=== PATIENT | male | born 1945 | race Caucasian/White ===

== ENCOUNTER 2018-09-19 06:15 | Day surgery (SDC) | payer MEDICARE ==
[2018-09-18 12:50] VITALS: BMI 25.7
[~2018-09-19 06:15] MED LIST: BSS (NA/CA/MG/K) BALANCED SALT SOLUTION OPHTH SOLN 15 ML BOTTLE OD ONE; CHONDROITIN SU A/HYALUR SOD 1 KIT IO ONE; EPINEPHrine/PF 1 MG/1 ML (1:1,000) AMPULE SQ ONE; LIDOCAINE HCL 1% PRESERVATIVE FREE - 30ML VIAL IO ONE; POVIDONE-IODINE 5% OPHTHALMIC PREP 30 ML SOLUTION OD ONE; TETRACAINE 0.5% OPHTH SOLN 2 ML BOTTLE OD ONE
[2018-09-19] MEDS ORDERED: PHENYLEPHRINE 2.5% OPHTH SOLN 15 ML BOTTLE ONE (06:49)
[2018-09-19] MEDS ORDERED: CYCLOPENTOLATE HCL 1% OPHTH SOLN 2 ML BOTTLE ONE (06:49)
[2018-09-19] MEDS ORDERED: CIPROFLOXACIN HCL 0.3% OPHTH 2.5ML BOTTLE ONE (06:49)
[2018-09-19] MEDS ORDERED: TROPICAMIDE 1% OPHTH SOLN 15 ML BOTTLE ONE (06:49)
[2018-09-19] MEDS ORDERED: CHONDROITIN SU A/HYALUR SOD 1 KIT ONE (07:09)
[2018-09-19] MEDS ORDERED: PHENYLEPHRINE 2.5% OPHTH SOLN 15 ML BOTTLE OD ONE ×3 (07:10→07:20)
[2018-09-19] MEDS ORDERED: CYCLOPENTOLATE HCL 1% OPHTH SOLN 2 ML BOTTLE OD ONE ×3 (07:10→07:20)
[2018-09-19] MEDS ORDERED: TROPICAMIDE 1% OPHTH SOLN 15 ML BOTTLE OD ONE ×3 (07:10→07:20)
[2018-09-19] MEDS ORDERED: CIPROFLOXACIN 0.3% EYE DROPS 5 ML BOTTLE OD ONE ×2 (07:10→07:20)
[2018-09-19] MEDS ORDERED: CIPROFLOXACIN HCL 0.3% OPHTH 2.5ML BOTTLE OD ONE (07:15)
[2018-09-19] MEDS ORDERED: VANCOMYCIN 500 MG VIAL (RESTRICTED TO ID ONLY) ONE (07:25)
[2018-09-19] MEDS ORDERED: LIDOCAINE HCL/PF 1% SDV 5ML VIAL ONE (07:25)
[2018-09-19] MEDS ORDERED: POVIDONE-IODINE 5% OPHTHALMIC PREP 30 ML SOLUTION ONE (07:26)
[2018-09-19] MEDS ORDERED: TETRACAINE 0.5% OPHTH SOLN 2 ML BOTTLE ONE (07:26)
[2018-09-19] MEDS ORDERED: WATER FOR INJ,STERILE 10 ML ONE ×2 (07:26→07:39)
[2018-09-19] MEDS ORDERED: TRYPAN BLUE 0.5 ML DISP.SYRIN ONE (07:27)
[2018-09-19] MEDS ORDERED: ACETAMINOPHEN 325 MG TABLET (FP) PO PRN (07:44)
[2018-09-19] MEDS ORDERED: KETOROLAC TROMETHAMINE 0.5% EYE DROP 1 DROP DROPS OP SCH (07:45)
[2018-09-19] MEDS ORDERED: OFLOXACIN 0.3% OPHTHALMIC SOLUTION 5 ML BOTTLE OP SCH (07:45)
[2018-09-19] MEDS ORDERED: PHENYLEPHRINE 2.5% OPHTH SOLN 15 ML BOTTLE OP SCH (07:45)
[2018-09-19] MEDS ORDERED: CYCLOPENTOLATE HCL 1% OPHTH SOLN 2 ML BOTTLE OP SCH (07:45)
[2018-09-19] MEDS ORDERED: TROPICAMIDE 1% OPHTH SOLN 15 ML BOTTLE OP SCH (07:45)
[2018-09-19] MEDS ORDERED: ONDANSETRON 4 MG/2 ML VIAL IVPUSH PRN (07:46)
[2018-09-19] MEDS ORDERED: PHENYLEPHRINE/KETOROLAC 4 ML VIAL IO ONE ×2 (08:00→08:26)
[2018-09-19] MEDS ORDERED: CIPROFLOXACIN 0.3% EYE DROPS 5 ML BOTTLE OP SCH (08:00)
[2018-09-19] MEDS ORDERED: TETRACAINE 0.5% OPHTH SOLN 2 ML BOTTLE OD ONE (08:08)
[2018-09-19] MEDS ORDERED: MIDAZOLAM HCL 2 MG/2 ML SINGLE DOSE VIAL ONE (08:08)
[2018-09-19] MEDS ORDERED: POVIDONE-IODINE 5% OPHTHALMIC PREP 30 ML SOLUTION OD ONE (08:09)
[2018-09-19] MEDS ORDERED: CHONDROITIN SU A/HYALUR SOD 1 KIT IO ONE (08:19)
[2018-09-19] MEDS ORDERED: BSS (NA/CA/MG/K) BALANCED SALT SOLUTION OPHTH SOLN 15 ML BOTTLE OD ONE (08:19)
[2018-09-19] MEDS ORDERED: LIDOCAINE HCL 1% PRESERVATIVE FREE - 30ML VIAL IO ONE (08:19)
--- NOTE | 2018-09-19 08:51 | SPEC ---
DATE OF OPERATION: 09/19/2018 PREOPERATIVE DIAGNOSIS: Cataract, right eye. POSTOPERATIVE DIAGNOSIS: Cataract, right eye. PROCEDURE: Phacoemulsification of right cataract with posterior chamber intraocular lens implantation, the lens used SN60WF, 22.5 diopter power, serial No. [id number]. SURGEON: Jose Daniel Lazo M.D. ANESTHESIA: Topical MAC. COMPLICATIONS: None. DESCRIPTION OF PROCEDURE: The patient was brought to the operating room and correctly identified along with the operative site and the correct intraocular lens johnston. The patient was then prepped and draped in the usual sterile fashion including 5% Betadine solution in the conjunctival sac and an eyelid drape. An eyelid speculum was then placed in the eye. A paracentesis port was created and approximately 0.5 mL of preservative free Lidocaine was then injected into the eye. Viscoelastic was then injected to inflate the anterior chamber. A temporal clear corneal wound was created. A continuous circular capsulorrhexis was performed. The nucleus was then hydrodissected with BSS and removed with phacoemulsification. The remaining cortical material was irrigated and aspirated. Viscoelastic was injected to inflate the capsular bag and the intraocular lens was then implanted into the capsular bag. The remaining Viscoelastic was irrigated and aspirated from the eye. The IOL was noted to be well centered and completely covered by the anterior capsulorrhexis. Topical vancomycin was placed and the eye patched and shielded. All wounds were tested and found to be watertight. No suture was placed. The eye was then shielded. The patient was then discharged from the operating room in stable condition. JOSE DANIEL LAZO M.D. [id number]
[2018-09-19 10:42] VITALS: BP 126/59; PULSE 69; TEMP 97.2
== END 2018-09-19 09:45 | disposition home or self-care (01) ==
LOC: JASU-SURG 06:15
PROVIDERS: ATTEND Ophthalmology
PROC: 08RJ3JZ Replacement of Right Lens with Synthetic Substitute, Percutaneous Approach (ICD-10-PCS; principal; 2018-09-19 08:00)
DX: H26.9 Unspecified cataract (principal)
CPT/HCPCS: 82962; C9447

== ENCOUNTER 2018-10-10 06:25 | Day surgery (SDC) | payer MEDICARE ==
[2018-10-09 10:37] VITALS: BMI 25.7
[~2018-10-10 06:25] MED LIST changes: +ACETAMINOPHEN 325 MG TABLET (FP) PO PRN; -BSS (NA/CA/MG/K) BALANCED SALT SOLUTION OPHTH SOLN 15 ML BOTTLE OD ONE; -CHONDROITIN SU A/HYALUR SOD 1 KIT IO ONE; -EPINEPHrine/PF 1 MG/1 ML (1:1,000) AMPULE SQ ONE; -LIDOCAINE HCL 1% PRESERVATIVE FREE - 30ML VIAL IO ONE; +PHENYLEPHRINE/KETOROLAC 4 ML VIAL IO ONE; -POVIDONE-IODINE 5% OPHTHALMIC PREP 30 ML SOLUTION OD ONE; -TETRACAINE 0.5% OPHTH SOLN 2 ML BOTTLE OD ONE; +VANCOMYCIN 500 MG VIAL (RESTRICTED TO ID ONLY) IVPB ONE
[2018-10-10] MEDS ORDERED: OFLOXACIN 0.3% OPHTHALMIC SOLUTION 5 ML BOTTLE ONE (06:42)
[2018-10-10] MEDS ORDERED: PHENYLEPHRINE 2.5% OPHTH SOLN 15 ML BOTTLE ONE (06:43)
[2018-10-10] MEDS ORDERED: CYCLOPENTOLATE HCL 1% OPHTH SOLN 2 ML BOTTLE ONE (06:43)
[2018-10-10] MEDS ORDERED: TROPICAMIDE 1% OPHTH SOLN 15 ML BOTTLE ONE (06:43)
[2018-10-10] MEDS ORDERED: KETOROLAC TROMETHAMINE 0.5% EYE DROP 1 DROP DROPS ONE (06:44)
[2018-10-10] MEDS: KETOROLAC TROMETHAMINE 0.5% EYE DROP 1 DROP DROPS OP SCH ×3 (06:50→07:10)
[2018-10-10] MEDS: CYCLOPENTOLATE HCL 1% OPHTH SOLN 2 ML BOTTLE OP SCH ×3 (06:50→07:10)
[2018-10-10] MEDS: TROPICAMIDE 1% OPHTH SOLN 15 ML BOTTLE OP SCH ×3 (06:50→07:10)
[2018-10-10] MEDS: PHENYLEPHRINE 2.5% OPHTH SOLN 15 ML BOTTLE OP SCH ×3 (06:50→07:10)
[2018-10-10] MEDS: OFLOXACIN 0.3% OPHTHALMIC SOLUTION 5 ML BOTTLE OP SCH ×3 (06:50→07:10)
[2018-10-10 07:23] VITALS: TEMP 98.1
[2018-10-10] MEDS ORDERED: SEVOFLURANE 250 ML BTL ONE (07:23)
[2018-10-10] MEDS ORDERED: DESFLURANE GAS 240 ML BOTTLE IH ONE (07:23)
[2018-10-10] MEDS ORDERED: PHENYLEPHRINE/KETOROLAC 4 ML VIAL IO ONE ×2 (07:45→08:29)
[2018-10-10] MEDS ORDERED: LIDOCAINE HCL/PF 1% SDV 5ML VIAL ONE ×2 (07:47→07:53)
[2018-10-10] MEDS ORDERED: TRYPAN BLUE 0.5 ML DISP.SYRIN ONE (07:47)
[2018-10-10] MEDS ORDERED: WATER FOR INJ,STERILE 10 ML ONE (07:47)
[2018-10-10] MEDS ORDERED: VANCOMYCIN 500 MG VIAL (RESTRICTED TO ID ONLY) ONE ×2 (07:47→07:53)
[2018-10-10] MEDS ORDERED: TETRACAINE 0.5% OPHTH SOLN 2 ML BOTTLE ONE ×2 (07:47→07:54)
[2018-10-10] MEDS ORDERED: POVIDONE-IODINE 5% OPHTHALMIC PREP 30 ML SOLUTION ONE ×2 (07:48→07:54)
[2018-10-10] MEDS ORDERED: BSS (NA/CA/MG/K) BALANCED SALT SOLUTION OPHTH SOLN 15 ML BOTTLE ONE (07:54)
[2018-10-10] MEDS ORDERED: MIDAZOLAM HCL 2 MG/2 ML SINGLE DOSE VIAL ONE (08:02)
[2018-10-10] MEDS ORDERED: TETRACAINE 0.5% OPHTH SOLN 2 ML BOTTLE OS ONE (08:10)
[2018-10-10] MEDS ORDERED: POVIDONE-IODINE 5% OPHTHALMIC PREP 30 ML SOLUTION OS ONE (08:12)
[2018-10-10] MEDS ORDERED: CHONDROITIN SU A/HYALUR SOD 1 KIT ONE (08:21)
[2018-10-10] MEDS ORDERED: BSS (NA/CA/MG/K) BALANCED SALT SOLUTION OPHTH SOLN 15 ML BOTTLE OS ONE (08:21)
[2018-10-10] MEDS ORDERED: CHONDROITIN SU A/HYALUR SOD 1 KIT IO ONE (08:22)
[2018-10-10] MEDS ORDERED: LIDOCAINE HCL 1% PRESERVATIVE FREE - 30ML VIAL IO ONE (08:22)
[2018-10-10] MEDS ORDERED: VANCOMYCIN 500 MG VIAL (RESTRICTED TO ID ONLY) IVPB ONE (08:40)
--- NOTE | 2018-10-10 09:34 | SPEC ---
DATE OF OPERATION: 10/10/2018 OPERATION: Phacoemulsification with posterior chamber intraocular lens implantation, left eye. Lens used SN60WF, 22.5 diopter power, serial no. [id number]. PREOPERATIVE DIAGNOSIS: Cataract, left eye. POSTOPERATIVE DIAGNOSIS: Cataract, left eye. SURGEON: Jose Daniel Lazo M.D. ANESTHESIA: Topical MAC. COMPLICATIONS: None. PROCEDURE: The patient was brought to the operating room and correctly identified along with the operative site and the correct intraocular lens johnston. The patient was then prepped and draped in the usual sterile fashion including 5% Betadine solution in the conjunctival sac and an eyelid drape. An eyelid speculum was then placed in the eye. A paracentesis port was created and approximately 0.5 mL of preservative-free lidocaine was then injected into the eye. Viscoelastic was then injected to inflate the anterior chamber. A temporal clear corneal wound was created. A continuous circular capsulorrhexis was performed. The nucleus was then hydrodissected with BSS and removed with phacoemulsification. The remaining cortical material was irrigated and aspirated. Viscoelastic was injected to inflate the capsular bag and the intraocular lens was then implanted into the capsular bag. The remaining Viscoelastic was irrigated and aspirated from the eye. The IOL was noted to be well centered and completely covered by the anterior capsulorrhexis. Topical vancomycin was placed and the eye patched and shielded. All wounds were tested and found to be watertight. No suture was placed. The eye was then shielded. The patient was then discharged from the operating room in stable condition. JOSE DANIEL LAZO M.D. [id number]
[2018-10-10 09:43] VITALS: BP 140/67; PULSE 65
== END 2018-10-10 09:45 | disposition home or self-care (01) ==
LOC: JASU-SURG 06:25
PROVIDERS: ATTEND Ophthalmology
PROC: 08RK3JZ Replacement of Left Lens with Synthetic Substitute, Percutaneous Approach (ICD-10-PCS; principal; 2018-10-10 08:00)
DX: H26.9 Unspecified cataract (principal)
CPT/HCPCS: 82962; C9447

== ENCOUNTER 2023-04-30 09:57 | Inpatient (IN) | payer OTHER ==
[2023-04-30] MEDS ORDERED: VANCOMYCIN/WATER 1,250 MG/250 ML BAG (RESTRICTED TO ID ONLY) IVPB ONE (10:59)
[2023-04-30] MEDS ORDERED: ACETAMINOPHEN 1000 MG/100 ML BAG IVPB ONE (11:01)
[2023-04-30] MEDS ORDERED: ACETAMINOPHEN INJECTION 100 ML IVPB ONE (11:13)
[2023-04-30] MEDS ORDERED: VANCOMYCIN/WATER 1250 MG 1,250 MG/250 ML BAG IVPB ONE (11:13)
[2023-04-30 12:24] LABS: BASO % 0.4 % (0-2.0); EOS % 0.1 % (0-4.5); HEMATOCRIT 37.1 % (35.4-49); HEMOGLOBIN 12.2 GM/dL (11.7-16.9); LYMPH % 39.6 % (8-40); MCH 31.7 pg (25.7-33.7); MCHC 32.9 g/dl (32.0-35.9); MEAN CELL VOLUME 96.5 fl (80-96); MEAN PLT VOLUME 10.1 fl (7.5-11.1); MONO % 2.5 % (3.8-10.2); NEUT % 57.4 % (42.8-82.8); PLATELET COUNT 197 10^3/uL (134-434); RBC 3.85 M/mm3 (4.00-5.60); RDW 13.3 % (11.9-15.9); WHITE BLOOD COUNT 14.9 K/mm3 (4.0-10.0)
[2023-04-30 12:30] LABS: INR 1.57 (0.83-1.09); PROTHROMBIN TIME (PATIENT) 18.1 SEC (9.7-13.0)
[2023-04-30 12:46] LABS: CHLORIDE 100 mmol/L (98-107); POTASSIUM 5.5 mmol/L (3.5-5.1); SODIUM 138 mmol/L (136-145)
[2023-04-30 12:48] LABS: CALCIUM 8.6 mg/dL (8.5-10.1)
[2023-04-30 12:49] LABS: ALBUMIN 2.7 g/dl (3.4-5.0); ANION GAP 9 MMOL/L (8-16); BLOOD UREA NITROGEN 27.7 mg/dL (7-18); CO2 30 mmol/L (21-32)
[2023-04-30 12:51] LABS: BILIRUBIN,DIRECT 0.1 mg/dL (0.0-0.2); CREATININE 1.9 mg/dL (0.55-1.3)
[2023-04-30 12:52] LABS: SGOT/AST 19 U/L (15-37); SGPT/ALT 12 U/L (13-61)
[2023-04-30 12:53] LABS: BILIRUBIN,TOTAL 0.7 mg/dL (0.2-1); TOT PROT 6.1 g/dl (6.4-8.2)
[2023-04-30 12:54] LABS: ALK PHOS 87 U/L (45-117)
[2023-04-30 12:59] LABS: GLUCOSE,RANDOM 416 mg/dL (74-106)
[2023-04-30] MEDS ORDERED: SODIUM CHLORIDE 0.9% 500 ML INFUS.BAG IV ONE (13:07)
[2023-04-30 13:10] LABS: ERYTHROCYTE SEDIMENTATION RATE 85 mm/hr (0-20)
[2023-04-30] MEDS ORDERED: INSULIN (NOVOLOG) ASPART 100 UNITS/ML 10ML VIAL SQ ONE (13:29)
[2023-04-30] MEDS ORDERED: LACTATED RINGERS SOLUTION 1,000 ML IV SCH (14:00)
[2023-04-30] MEDS ORDERED: HEPARIN NA (PORCINE) 5,000 UNITS/ML 1ML VIAL SQ SCH (14:00)
[2023-04-30 16:40] VITALS: BMI 22.8
[2023-04-30] MEDS: INSULIN SLIDING SCALE (NOVOLOG) 1 VIAL SQ SCH (17:22)
[2023-04-30] MEDS ORDERED: CEFEPIME HCL/D5W 1 GM/50 ML BAG IVPB SCH (22:00)
[2023-04-30] MEDS: APIXABAN 5 MG TABLET PO SCH (22:12)
[2023-04-30] MEDS: ATORVASTATIN CA 80 MG TABLET (FP) PO SCH (22:12)
[2023-04-30] MEDS: CEFEPIME 1 GM in DEXTROSE 5%-WATER 100 ML IVPB SCH (22:12)
[2023-05-01] MEDS: ACETAMINOPHEN 325 MG TABLET (FP) PO PRN ×3 (00:29→17:29)
[2023-05-01] MEDS: CILOSTAZOL 50 MG TABLET PO SCH ×3 (06:53→21:57)
[2023-05-01] MEDS: INSULIN SLIDING SCALE (NOVOLOG) 1 VIAL SQ SCH ×3 (06:57→17:25)
[2023-05-01] MEDS: PANTOPRAZOLE 40 MG TABLET PO SCH (09:46)
[2023-05-01] MEDS: ASPIRIN 81 MG CHEWABLE TABLETS PO SCH (09:46)
[2023-05-01] MEDS: TAMSULOSIN HCL 0.4 MG CAP PO SCH (09:46)
[2023-05-01] MEDS: APIXABAN 5 MG TABLET PO SCH ×2 (09:46→21:56)
[2023-05-01] MEDS: CEFEPIME 1 GM in DEXTROSE 5%-WATER 100 ML IVPB SCH ×2 (09:47→21:55)
[2023-05-01] MEDS: SACUBITRIL/VALSARTAN 49 MG-51 MG TABLET PO SCH ×2 (09:48→21:57)
[2023-05-01] MEDS: metoPROLOL SUCCINATE 25 MG TAB.SR.24H (FP) PO SCH (09:48)
[2023-05-01] MEDS ORDERED: VANCOMYCIN 1 GM/200 ML PREMIX BAG (RESTRICTED TO ID ONLY) IVPB SCH (10:00)
[2023-05-01] MEDS ORDERED: VANCOMYCIN 1 GM in D5W (PRE-DOCKED) 1,000 MG/250 ML (RESTRICTED TO ID ONLY IVPB SCH (10:00)
[2023-05-01 10:43] LABS: BASO % 0.2 % (0-2.0); EOS % 0.4 % (0-4.5); HEMATOCRIT 36.1 % (35.4-49); HEMOGLOBIN 11.6 GM/dL (11.7-16.9); LYMPH % 43.4 % (8-40); MCH 30.7 pg (25.7-33.7); MCHC 32.2 g/dl (32.0-35.9); MEAN CELL VOLUME 95.3 fl (80-96); MEAN PLT VOLUME 9.9 fl (7.5-11.1); MONO % 2.4 % (3.8-10.2); NEUT % 53.6 % (42.8-82.8); PLATELET COUNT 195 10^3/uL (134-434); RBC 3.79 M/mm3 (4.00-5.60); RDW 13.3 % (11.9-15.9); WHITE BLOOD COUNT 12.7 K/mm3 (4.0-10.0)
[2023-05-01 11:37] LABS: POTASSIUM 3.8 mmol/L (3.5-5.1)
[2023-05-01 11:39] LABS: ALBUMIN 2.4 g/dl (3.4-5.0); CALCIUM 8.2 mg/dL (8.5-10.1)
[2023-05-01 11:40] LABS: MAGNESIUM 2.2 mg/dL (1.8-2.4)
[2023-05-01 11:42] LABS: PHOSPHOROUS 3.6 mg/dL (2.5-4.9)
[2023-05-01 11:43] LABS: CREATININE 1.7 mg/dL (0.55-1.3)
[2023-05-01 11:44] LABS: TOT PROT 5.3 g/dl (6.4-8.2)
[2023-05-01 11:46] LABS: BILIRUBIN,TOTAL 0.5 mg/dL (0.2-1)
[2023-05-01] MEDS: GABAPENTIN 100 MG CAPSULE PO SCH ×2 (12:51→21:56)
[2023-05-01] MEDS ORDERED: VANCOMYCIN/WATER FOR INJ (PEG) 1,000 MG/200 ML BAG IVPB SCH (17:15)
[2023-05-01] MEDS ORDERED: ACETAMINOPHEN 1000 MG/100 ML BAG IVPB ONE (20:34)
[2023-05-01] MEDS: ATORVASTATIN CA 80 MG TABLET (FP) PO SCH (21:56)
[2023-05-02] MEDS: ACETAMINOPHEN 325 MG TABLET (FP) PO PRN ×4 (03:21→20:03)
[2023-05-02] MEDS: INSULIN SLIDING SCALE (NOVOLOG) 1 VIAL SQ SCH ×3 (06:13→17:00)
[2023-05-02] MEDS: GABAPENTIN 100 MG CAPSULE PO SCH ×3 (06:13→21:30)
[2023-05-02 09:52] LABS: BASO % 0.3 % (0-2.0); EOS % 0.5 % (0-4.5); HEMATOCRIT 34.1 % (35.4-49); HEMOGLOBIN 11.5 GM/dL (11.7-16.9); LYMPH % 46.9 % (8-40); MCH 31.9 pg (25.7-33.7); MCHC 33.7 g/dl (32.0-35.9); MEAN CELL VOLUME 94.6 fl (80-96); MEAN PLT VOLUME 9.6 fl (7.5-11.1); MONO % 2.4 % (3.8-10.2); NEUT % 49.9 % (42.8-82.8); PLATELET COUNT 206 10^3/uL (134-434); RDW 12.8 % (11.9-15.9); WHITE BLOOD COUNT 13.1 K/mm3 (4.0-10.0)
[2023-05-02 09:59] LABS: POTASSIUM 3.9 mmol/L (3.5-5.1)
[2023-05-02 10:00] LABS: CALCIUM 8.2 mg/dL (8.5-10.1)
[2023-05-02 10:01] LABS: BLOOD UREA NITROGEN 23.1 mg/dL (7-18)
[2023-05-02 10:05] LABS: CREATININE 1.5 mg/dL (0.55-1.3)
[2023-05-02] MEDS: CEFEPIME 1 GM in DEXTROSE 5%-WATER 100 ML IVPB SCH ×2 (10:34→21:30)
[2023-05-02] MEDS: CILOSTAZOL 50 MG TABLET PO SCH ×2 (10:34→21:30)
[2023-05-02] MEDS: SACUBITRIL/VALSARTAN 49 MG-51 MG TABLET PO SCH ×2 (10:34→21:30)
[2023-05-02] MEDS: metoPROLOL SUCCINATE 25 MG TAB.SR.24H (FP) PO SCH (10:35)
[2023-05-02] MEDS: PANTOPRAZOLE 40 MG TABLET PO SCH (10:35)
[2023-05-02] MEDS: APIXABAN 5 MG TABLET PO SCH ×2 (10:35→21:30)
[2023-05-02] MEDS: TAMSULOSIN HCL 0.4 MG CAP PO SCH (10:35)
[2023-05-02] MEDS: ASPIRIN 81 MG CHEWABLE TABLETS PO SCH (10:35)
[2023-05-02] MEDS: ATORVASTATIN CA 80 MG TABLET (FP) PO SCH (21:30)
[2023-05-03] MEDS: GABAPENTIN 100 MG CAPSULE PO SCH ×3 (06:05→21:30)
[2023-05-03] MEDS: INSULIN SLIDING SCALE (NOVOLOG) 1 VIAL SQ SCH ×3 (06:07→17:26)
[2023-05-03] MEDS: PANTOPRAZOLE 40 MG TABLET PO SCH (10:50)
[2023-05-03] MEDS: metoPROLOL SUCCINATE 25 MG TAB.SR.24H (FP) PO SCH (10:50)
[2023-05-03] MEDS: APIXABAN 5 MG TABLET PO SCH ×2 (10:50→21:30)
[2023-05-03] MEDS: ASPIRIN 81 MG CHEWABLE TABLETS PO SCH (10:50)
[2023-05-03] MEDS: TAMSULOSIN HCL 0.4 MG CAP PO SCH (10:50)
[2023-05-03] MEDS: SACUBITRIL/VALSARTAN 49 MG-51 MG TABLET PO SCH ×2 (10:51→21:30)
[2023-05-03] MEDS: CILOSTAZOL 50 MG TABLET PO SCH ×2 (10:51→21:30)
[2023-05-03] MEDS: CEFEPIME 1 GM in DEXTROSE 5%-WATER 100 ML IVPB SCH (10:52)
[2023-05-03 13:16] LABS: BASO % 0.2 % (0-2.0); EOS % 0.3 % (0-4.5); HEMATOCRIT 36.3 % (35.4-49); HEMOGLOBIN 11.7 GM/dL (11.7-16.9); MCHC 32.2 g/dl (32.0-35.9); MEAN CELL VOLUME 96.2 fl (80-96); MEAN PLT VOLUME 9.8 fl (7.5-11.1); MONO % 2.3 % (3.8-10.2); NEUT % 55.2 % (42.8-82.8); PLATELET COUNT 239 10^3/uL (134-434); RBC 3.77 M/mm3 (4.00-5.60); RDW 13.2 % (11.9-15.9); WHITE BLOOD COUNT 12.9 K/mm3 (4.0-10.0)
[2023-05-03 13:45] LABS: POTASSIUM 5.3 mmol/L (3.5-5.1)
[2023-05-03 13:46] LABS: CALCIUM 8.6 mg/dL (8.5-10.1)
[2023-05-03 13:47] LABS: BLOOD UREA NITROGEN 26.2 mg/dL (7-18)
[2023-05-03 13:50] LABS: CREATININE 1.7 mg/dL (0.55-1.3)
[2023-05-03] MEDS: DOCUSATE SODIUM 100 MG CAPSULE (FP) PO SCH (17:25)
[2023-05-03] MEDS: POLYETHYLENE GLYCOL (HEALTHYLAX) 3350 17 GM PACKET PO SCH (17:25)
[2023-05-03 20:33] VITALS: RESP 18
[2023-05-03] MEDS: ATORVASTATIN CA 80 MG TABLET (FP) PO SCH (21:30)
[2023-05-03] MEDS: CEPHALEXIN MONOHYDRATE 500 MG CAPSULE (UD) PO SCH (21:30)
[2023-05-03] MEDS: ACETAMINOPHEN 325 MG TABLET (FP) PO PRN (21:31)
[2023-05-03] MEDS ORDERED: SENNOSIDES 8.8 MG/5 ML SYRUP PO SCH (22:00)
[2023-05-04] MEDS: ACETAMINOPHEN 325 MG TABLET (FP) PO PRN ×2 (02:14→06:29)
[2023-05-04] MEDS: GABAPENTIN 100 MG CAPSULE PO SCH ×2 (05:08→13:21)
[2023-05-04] MEDS: INSULIN SLIDING SCALE (NOVOLOG) 1 VIAL SQ SCH ×3 (06:26→16:45)
[2023-05-04] MEDS: TAMSULOSIN HCL 0.4 MG CAP PO SCH (08:04)
[2023-05-04 08:58] LABS: BASO % 0.3 % (0-2.0); EOS % 0.8 % (0-4.5); HEMATOCRIT 32.6 % (35.4-49); HEMOGLOBIN 10.8 GM/dL (11.7-16.9); LYMPH % 53.5 % (8-40); MCH 31.2 pg (25.7-33.7); MEAN CELL VOLUME 94.6 fl (80-96); MEAN PLT VOLUME 9.3 fl (7.5-11.1); MONO % 2.3 % (3.8-10.2); NEUT % 43.1 % (42.8-82.8); PLATELET COUNT 242 10^3/uL (134-434); RBC 3.45 M/mm3 (4.00-5.60); WHITE BLOOD COUNT 10.7 K/mm3 (4.0-10.0)
[2023-05-04 09:18] LABS: POTASSIUM 4.2 mmol/L (3.5-5.1)
[2023-05-04 09:34] LABS: CALCIUM 8.4 mg/dL (8.5-10.1)
[2023-05-04 09:35] LABS: BLOOD UREA NITROGEN 29.5 mg/dL (7-18)
[2023-05-04 09:40] LABS: CREATININE 1.7 mg/dL (0.55-1.3)
[2023-05-04] MEDS: DOCUSATE SODIUM 100 MG CAPSULE (FP) PO SCH (09:53)
[2023-05-04] MEDS: APIXABAN 5 MG TABLET PO SCH (09:53)
[2023-05-04] MEDS: ASPIRIN 81 MG CHEWABLE TABLETS PO SCH (09:53)
[2023-05-04] MEDS: SACUBITRIL/VALSARTAN 49 MG-51 MG TABLET PO SCH (09:54)
[2023-05-04] MEDS: PANTOPRAZOLE 40 MG TABLET PO SCH (09:54)
[2023-05-04] MEDS: POLYETHYLENE GLYCOL (HEALTHYLAX) 3350 17 GM PACKET PO SCH (09:54)
[2023-05-04] MEDS: CEPHALEXIN MONOHYDRATE 500 MG CAPSULE (UD) PO SCH (09:54)
[2023-05-04] MEDS: metoPROLOL SUCCINATE 25 MG TAB.SR.24H (FP) PO SCH (09:55)
[2023-05-04] MEDS: CILOSTAZOL 50 MG TABLET PO SCH (09:55)
[2023-05-04 15:20] VITALS: BP 102/58; PULSE 81; TEMP 98.3
== END 2023-05-04 18:26 | disposition home or self-care (01) | DRG 603 ==
LOC: JER 09:57 → JERBED 13:58 → J5S 16:02
PROVIDERS: ADMIT Internal Medicine; ATTEND Student in an Organized Health Care Education/Training Program
DX: L03.116 Cellulitis of left lower limb (principal); I42.8 Other cardiomyopathies; N17.9 Acute kidney failure, unspecified; I13.0 Hypertensive heart and chronic kidney disease with heart failure and stage 1 through stage 4 chronic kidney disease, or unspecified chronic kidney disease; C91.10 Chronic lymphocytic leukemia of B-cell type not having achieved remission; E78.5 Hyperlipidemia, unspecified; I48.91 Unspecified atrial fibrillation; Z79.01 Long term (current) use of anticoagulants; I73.9 Peripheral vascular disease, unspecified; Z95.810 Presence of automatic (implantable) cardiac defibrillator; E11.65 Type 2 diabetes mellitus with hyperglycemia; E11.22 Type 2 diabetes mellitus with diabetic chronic kidney disease; N18.9 Chronic kidney disease, unspecified; E11.51 Type 2 diabetes mellitus with diabetic peripheral angiopathy without gangrene; I25.10 Atherosclerotic heart disease of native coronary artery without angina pectoris
CPT/HCPCS: 36415; 80048; 80053; 80076; 82962; 83735; 83880; 84100; 85025; 85610; 85651; 85730; 86140; 86850; 86900; 86901; 87040; 93005; 93010; 93306-TC; 93971-TC; 97116-GP; 97162-GP; 99285-25